=== PATIENT | male | born 1965 | race Caucasian/White ===

== ENCOUNTER 2017-06-09 13:18 | Emergency (ER) | payer MEDICARE, MEDICAID ==
[~2017-06-09] VITALS: Ht 180.3 cm; Wt 89.0 kg
[2017-06-09] MEDS ORDERED: HYDR-4069 PO (13:26)
[2017-06-09] MEDS ORDERED: TAMS0.4C32 PO (13:26)
[2017-06-09] MEDS ORDERED: OMEP20 PO (13:26)
[2017-06-09] MEDS ORDERED: GABA-533 PO (13:26)
[2017-06-09 14:29] VITALS: BP 133/85
[2017-06-09] MEDS ORDERED: IBUPROFEN 800 MG TABLET PO ONE (15:00)
[2017-06-09 15:32] LABS: INFLUENZA TYPE B NEGATIVE FOR TYPE B (NEGATIVE)
== END 2017-06-09 15:54 | disposition home or self-care (01) ==
LOC: EMS 13:22
DX: J11.1 Influenza due to unidentified influenza virus with other respiratory manifestations (principal); K12.0 Recurrent oral aphthae; K21.9 Gastro-esophageal reflux disease without esophagitis; Z79.899 Other long term (current) drug therapy; Z90.49 Acquired absence of other specified parts of digestive tract; Z98.890 Other specified postprocedural states
CPT/HCPCS: 87804; 99284

== ENCOUNTER 2017-06-27 13:00 | Emergency (ER) | payer MEDICARE, MEDICAID ==
[~2017-06-27] VITALS: Ht 180.3 cm; Wt 81.8 kg
[~2017-06-27 13:00] MED LIST: GABA-533 PO; HYDR-4069 PO; OMEP20 PO; TAMS0.4C32 PO
[2017-06-27] MEDS ORDERED: BUPR1PAT2 TD (13:14)
[2017-06-27] MEDS ORDERED: ONDANSETRON HCL 4 MG/2 ML VIAL IVP ONE (16:30)
[2017-06-27] MEDS ORDERED: HYDROmorphone 2 MG/ML SYRINGE IVP ONE ×2 (16:30→19:15)
[2017-06-27] MEDS ORDERED: SODIUM CHLORIDE 0.9% 1,000 ML IV ONE (16:30)
[2017-06-27 16:34] LABS: BASOPHILS % (AUTO) 0.5 % (0.0-2.0); EOSINOPHILS % (AUTO) 0.5 % (1.0-6.0); HEMATOCRIT 37.8 % (41-53); HEMOGLOBIN 13.1 g/dL (13.5-17.5); LYMPHOCYTES # (AUTO) 1.2 K/uL (1.0-4.8); MEAN CORPUSCULAR HEMOGLOBIN 30.8 pg (26.0-34.0); MEAN CORPUSCULAR HGB CONC 34.7 G/dL (31.0-37.0); MEAN CORPUSCULAR VOLUME 89 fL (80-100); MONOCYTES # (AUTO) 0.4 K/uL (0.1-1.0); MONOCYTES % (AUTO) 7.9 % (2.0-9.0); NEUTROPHILS # (AUTO) 3.2 K/uL (1.8-7.7); NEUTROPHILS % (AUTO) 66.1 % (40.0-70.0); PLATELET COUNT (AUTO) 259 K/uL (150-450); RED BLOOD CELL COUNT(AUTO) 4.25 MIL/uL (4.50-5.90); RED CELL DISTRIBUTION WIDTH 13.4 % (11.5-14.5)
[2017-06-27 16:46] LABS: ANION GAP 8 mmol/L (8-16); CALCIUM, TOTAL 8.8 mg/dL (8.8-10.5); CARBON DIOXIDE 29 mmol/L (22-29); CHLORIDE 101 mmol/L (98-107); CREATININE 0.83 mg/dL (0.60-1.30); GLOMERULAR FILTR. RATE CALC > 60 mL/min (>60); GLUCOSE,RANDOM 101 mg/dL (70-110); POTASSIUM 3.9 mmol/L (3.5-5.1); SODIUM SERUM 138 mmol/L (136-145); UREA NITROGEN, BLOOD 11 mg/dL (7-18)
[2017-06-27 16:50] LABS: PROTHROMBIN TIME 10.7 SEC (9.4-11.6)
[2017-06-27 16:53] LABS: ALANINE AMINOTRANSFERASE 25 U/L (12-78); ALBUMIN 3.4 g/dL (3.4-5.0); ALKALINE PHOSPHATASE 98 U/L (46-116); ASPARTATE AMINOTRANSFERASE 13 U/L (15-37); BILIRUBIN,TOTAL 0.7 mg/dL (0.1-1.0); CREATINE KINASE, TOTAL 40 U/L (39-308); LIPASE 65 U/L (73-393); TOTAL PROTEIN, SERUM 6.9 g/dL (6.4-8.2)
[2017-06-27 16:56] LABS: B-TYPE NATRIURETIC PEPTIDE 19 pg/mL (0-100)
[2017-06-27 19:46] LABS: APPEARANCE,URINE CLEAR (CLEAR); GLUCOSE, URINE (UA) NEGATIVE (NEGATIVE); KETONES,URINE NEGATIVE (NEGATIVE); LEUKOCYTE ESTERASE ,URINE NEGATIVE (NEGATIVE); NITRATE,URINE NEGATIVE (NEGATIVE); OCCULT BLOOD,URINE NEGATIVE (NEGATIVE); PROTEIN,URINE NEGATIVE (NEGATIVE)
[2017-06-27 19:54] LABS: BILIRUBIN,URINE PRELIM. POSITIVE (NEGATIVE)
[2017-06-27 20:48] VITALS: BP 121/72
== END 2017-06-27 20:56 | disposition home or self-care (01) ==
LOC: EMS 16:06
DX: R11.2 Nausea with vomiting, unspecified (principal); R10.84 Generalized abdominal pain; N50.812 Left testicular pain; R19.7 Diarrhea, unspecified; K21.9 Gastro-esophageal reflux disease without esophagitis
CPT/HCPCS: 36415; 71045; 76700; 76870; 80053; 81003; 82550; 83690; 83880; 84484; 85025; 85610; 85730; 93005; 96374; 96375; 96376; 99285; J1170; J2405; J7030